=== PATIENT | male | born 1950 | race Caucasian/White ===

== ENCOUNTER 2020-04-23 04:38 | Emergency (ER) | payer BC, SELFPAY ==
[~2020-04-23] VITALS: Ht 170.2 cm; Wt 83.9 kg
[2020-04-23 04:40] VITALS: Ht 170.2 cm; Wt 83.9 kg
[2020-04-23 06:47] LABS: BASOPHIL % 0.6 % (0-2); PLATELET COUNT 205 x10^3mcL (130-400); RED CELL DISTRIBUTION WIDTH 14.4 % (11.5-14.5)
[2020-04-23 07:31] LABS: CALCIUM 9.4 mg/dL (8.5-10.1); CARBON DIOXIDE 25.9 mmol/L (21-32); CREATININE SERUM 1.3 mg/dL (0.7-1.3)
[2020-04-23 07:38] LABS: ALBUMIN 3.9 g/dL (3.4-5.0); BILIRUBIN TOTAL 0.5 mg/dL (0.20-1.00); TOTAL PROTEIN, SERUM 7.4 g/dL (6.4-8.2)
[2020-04-23 07:49] LABS: microscopic required? NO
[2020-04-23 07:59] LABS: UA SPECIFIC GRAVITY >=1.030 (1.005-1.035); urine erythrocyte NEGATIVE (NEGATIVE)
[2020-04-23 09:15] VITALS: BP 142/80
== END 2020-04-23 09:15 | disposition home or self-care (01) ==
LOC: ED 04:38
PROVIDERS: Emergency Medicine
DX: E86.0 Dehydration (principal); R53.1 Weakness; I10 Essential (primary) hypertension; E11.9 Type 2 diabetes mellitus without complications; Z20.828 Contact with and (suspected) exposure to other viral communicable diseases; Z88.8 Allergy status to other drugs, medicaments and biological substances
CPT/HCPCS: J7030; Q0092; U0003-CS

== ENCOUNTER 2020-05-14 19:36 | Emergency (ER) | payer BC ==
[~2020-05-14] VITALS: Ht 170.2 cm; Wt 83.9 kg
[2020-05-14 19:43] VITALS: Ht 170.2 cm; Wt 83.9 kg
[2020-05-14 21:41] VITALS: BP 153/92
== END 2020-05-14 21:41 | disposition home or self-care (01) ==
LOC: ED 19:36
DX: S61.012A Laceration without foreign body of left thumb without damage to nail, initial encounter (principal); I10 Essential (primary) hypertension; E11.9 Type 2 diabetes mellitus without complications; Z88.8 Allergy status to other drugs, medicaments and biological substances; W26.8XXA Contact with other sharp object(s), not elsewhere classified, initial encounter; Y93.89 Activity, other specified; Y92.89 Other specified places as the place of occurrence of the external cause; Y99.8 Other external cause status
CPT/HCPCS: 90715; J2001